=== PATIENT | female | born 1985 | race African-American/Black ===

== ENCOUNTER 2016-11-04 17:57 | Emergency (ER) | payer BC ==
[~2016-11-04] VITALS: Ht 162.6 cm; Wt 84.0 kg
[2016-11-04 18:30] VITALS: BP 138/72
--- NOTE | 2016-11-04 18:35 | PHYS DOC ---
Adult General Chief Complaint Chief Complaint: PELVIC PAIN HPI HPI Patient is a 31 year old female presents to the emergency department with request to have her IUD removed. She states that she went to [facility] today and they were unable to find the string to remove the IUD and advised her to come to the emergency department. Patient has no complaints of abdominal pain , no vaginal bleeding or discharge. Review of Systems Review of Systems Constitutional: Denies fever or chills [] Eyes: Denies change in visual acuity, redness, or eye pain [] HENT: Denies nasal congestion or sore throat [] Respiratory: Denies cough or shortness of breath [] Cardiovascular: No additional information not addressed in HPI [] GI: Denies abdominal pain, nausea, vomiting, bloody stools or diarrhea [] : Denies dysuria or hematuria [] Musculoskeletal: Denies back pain or joint pain [] Integument: Denies rash or skin lesions [] Neurologic: Denies headache, focal weakness or sensory changes [] Endocrine: Denies polyuria or polydipsia [] Physical Exam Physical Exam Constitutional: Well developed, well nourished, no acute distress, non-toxic appearance. [] Abdomen: Bowel sounds normal, soft, no tenderness, no masses, no pulsatile masses. : pt refused exam [] Skin: Warm, dry, no erythema, no rash. [] Psychologic: Affect normal, judgement normal, mood normal. [] EKG EKG [] Radiology/Procedures Radiology/Procedures [] Course & Med Decision Making Course & Med Decision Making Pertinent Labs and Imaging studies reviewed. (See chart for details) [] Dragon Disclaimer Dragon Disclaimer This electronic medical record was generated, in whole or in part, using a voice recognition dictation system. Departure Departure Impression: Primary Impression: Feared condition not demonstrated Disposition: 01 HOME, SELF-CARE Condition: STABLE Referrals: NO PCP (PCP) ALEXANDER PEARSON Jr, MD, CATHERINE J APRN Nov 04, 2016 18:35
== END 2016-11-04 18:40 | disposition home or self-care (01) ==
LOC: ER 17:57
DX: Z71.1 Person with feared health complaint in whom no diagnosis is made (principal)
CPT/HCPCS: 99281